=== PATIENT | female | born 1970 | race Caucasian/White ===

== ENCOUNTER 2016-12-06 19:29 | Inpatient (IN) | payer OTHER ==
--- NOTE | ~2016-12-06 | DS ---
Discharge Summary [facility] [address] [place]. [address] NAME: NADIA HART : 66 STATUS : DIS IN PAT#: [id number] AGE: 46 ADM/REG DATE : 12/06/16 MR#: [id number] REPORT SERV DATE: 12/10/16 DICTATED BY: DATE: REPORT STATUS : Draft TRANSCRIBED BY: MODL DATE: 12/09/16 ADMISSION DATE: 12/06/2016 DISCHARGE DATE: 12/09/2016 [facility] CONSULTANTS: None. DISCHARGE DIAGNOSES: 1. Recurrent abdominal wall cellulitis - precipitated by abrasion from new mattress and box springs. 2. Bilateral lower extremity lymphedema and pannus lymphedema - chronic. 3. Morbid obesity. 4. Hypokalemia - for scheduled potassium replacement at discharge. 5. Hypomagnesemia - for scheduled magnesium replacement at discharge. 6. Bradycardia - due to outpatient carvedilol dosing. Dose decreased for discharge. 7. Insulin-dependent diabetes mellitus type 2 - uncontrolled with outpatient hemoglobin A1c of 7.7. Blood glucose values here never more than 100, on significantly less insulin. Outpatient dietary noncompliance for additional education. 8. History of a tick bite - Lyme serologies negative. Discharged on empiric doxycycline. 9. Hypothyroidism - with abnormal thyroid function tests for outpatient repeat thyroid function tests in six weeks. 10.Stable pancytopenia - suspect chronic. For outpatient followup. IMAGING: Included a PA and lateral chest x-ray on 12/08/2016 for fever showing normal chest x-ray. PERTINENT LABS: Blood cultures x2, no growth. Procalcitonin negative. Creatinine between 0.6 and 0.87. Liver enzymes normal. TSH 4.7 with free T4 of 1.59. Immunoglobulin G and M levels normal. Hemoglobin A1c 7.7, lactate 1.1. White blood cell count 3.4 to 5.3. Hemoglobin 11 to 12, platelets 86 to 123. Lyme screening test negative. [place] spotted fever IgG and IgM pending at the time of discharge. HISTORY OF PRESENT ILLNESS: For full details, please see the previously dictated history of present illness by Dr. Mauricio Velasquez. This is a 46-year-old white female with morbid obesity and insulin-dependent diabetes mellitus type 2 with a history of recurrent abdominal wall cellulitis. The patient's symptoms began three days prior to admission when her pannus became abraded on a new mattress. She was seen in clinic by her primary care physician, given a dose of intramuscular Rocephin and a prescription for oral clindamycin. She took only one tablet and felt as if her cellulitic area was increasing, with some associated low- grade fevers, and she presented to the emergency department for further evaluation. The patient also provided history there of a tick bite one to two weeks ago and a prior history of [place] spotted fever. She had been prescribed doxycycline by her primary care provider, but had not been taking that medication. She did have some associated thrombocytopenia on admission of unclear chronicity. Discharge Summary [address] [address] NAME: NADIA HART : 66 STATUS : DIS IN PAT#: [id number] AGE: 46 ADM/REG DATE : 12/06/16 MR#: [id number] REPORT SERV DATE: 12/10/16 DICTATED BY: DATE: REPORT STATUS : Draft TRANSCRIBED BY: CHELLE DATE: 12/09/16 HOSPITAL COURSE: The patient was admitted to [address] [place] [address]. For the abdominal wall cellulitis, she was placed on IV Rocephin and vancomycin. She began responding to this almost immediately with regression of the erythema and induration. The patient had no ongoing warmth or tenderness of the pannus during admission. She did have prominent peau d'orange findings, and chronic lymphedema both of the lower extremities and the pannus seem to be playing a role in her recurrent infections. She was placed on IV diuretics for brief period with excellent urine output, and stability of her creatinine. The patient had some electrolyte abnormalities notably hypomagnesemia and hypokalemia even prior to initiation of diuretics. She was placed on scheduled and p.r.n. replacement for this. She also was noted to be bradycardic during portions of the admission with heart rate in the mid 40 to mid 50 range. She takes 12.5 mg of carvedilol previously and this was decreased to 6.25 mg p.o. twice a day with resultant improvement in her heart rate to the mid 60s to mid 70 range. The patient was continued on her empiric doxycycline throughout the hospitalization. Lyme serologies were obtained and were negative. [place] spotted fever serologies are still pending at the time of discharge, and she will complete a 10-day total course of doxycycline when she is at home. The patient was continued on her home dose of levothyroxine but had mild abnormalities noted on thyroid function testing. This will need to be followed up as an outpatient. The patient had many questions prior to discharge regarding self hygiene and care of her pannus. It was recommended that she use Hibiclens body washes for the next 14 days to eradicate any remaining superficial bacteria that may exist in her pannus or groin skin folds and across the pannus. DISCHARGE DISPOSITION: The patient is being discharged to home in the care of supportive family with no specific activity restrictions. Regarding diet, she should adhere to an 1800 K calorie ADA diet. Of note, when she adhered to a diet here, she required very, very minimal insulin, perhaps 10-20 units of basal insulin at night, compared to her 65 units a day at home. She would benefit from further outpatient diabetes education, but does not have any other home health or home physical therapy needs at present. She needs to follow up with her primary care provider in 7-14 days [address] Dr. Patel Miller. DISCHARGE MEDICATIONS: Include: 1. Amlodipine 10 mg p.o. at bedtime. 2. Aspirin 81 mg p.o. q.a.m. 3. Clindamycin 300 mg p.o. every eight hours for 10 days. 4. Doxycycline 100 mg p.o. b.i.d. for 10 days. 5. Carvedilol 6.25 mg p.o. twice a day. 6. Lasix 40 mg p.o. q.a.m. Discharge Summary [address] [address] NAME: NADIA HART : 66 STATUS : DIS IN PAT#: [id number] AGE: 46 ADM/REG DATE : 12/06/16 MR#: [id number] REPORT SERV DATE: 12/10/16 DICTATED BY: DATE: REPORT STATUS : Draft TRANSCRIBED BY: CHELLE DATE: 12/09/16 7. Levothyroxine 175 mcg p.o. q.a.m. 8. Multivitamin one tablet p.o. at bedtime. 9. Prilosec 20 mg p.o. daily. 10.Pravastatin 40 mg p.o. at bedtime. 11.Magnesium oxide 400 mg p.o. twice a day. 12.Potassium chloride 40 mEq p.o. twice a day. 13.Desyrel 25 mg p.o. at bedtime. 14.Flovent HFA two puffs inhaled twice a day as needed for shortness of breath. 15.Glipizide extended release 20 mg p.o. q.a.m. 16.Metformin 1000 mg p.o. twice a day. 17.Neurontin 300 mg p.o. twice a day as needed. 18.Albuterol MDI two puffs inhaled every four hours as needed for shortness of breath. 19.Victoza 1.2 mg subcu at bedtime. 20.Benadryl 25 mg p.o. daily as needed. 21.Lantus 50 units subcu at bedtime. 22.Chlorhexidine body wash 4% - washing skin folds and on pannus daily for 14 days. Thirty five minutes was spent in completion of the discharge. DICTATED BY: Cristy Wade/CHELLE Ok Ariza M.D. / [id number] CC: Cristy Wade M.D.
--- NOTE | ~2016-12-06 | HP ---
History And Physical [place] [address] [place]. [address] NAME: NADIA REDMOND : 66 STATUS : ADM IN [facility]#: [id number] AGE: 46 ADM/REG DATE : 12/06/16 MR#: [id number] REPORT SERV DATE: 12/07/16 DICTATED BY: DEONDRE SMITH DATE: 12/06/16 REPORT STATUS : Draft TRANSCRIBED BY: MODTyson DATE: 12/06/16 DATE OF ADMISSION: 12/06/2016 POINT OF ENTRY: [facility] Emergency Department. CHIEF COMPLAINT: Abdominal wall cellulitis. HISTORY OF PRESENT ILLNESS: Ms. Redmond is a 46-year-old female with a history of insulin- dependent diabetes mellitus, type 2, hypertension, hypothyroidism, and morbid obesity, who presents to emergency department with a three-day history of progressive worsening cellulitis involving her anterior abdominal wall. The patient states that her symptoms began about three days ago. It has been associated with some low-grade fevers of approximately 100.7 degrees Fahrenheit on Tuesday. She was seen in clinic by her primary care physician and was given a dose of intramuscular Rocephin as well as a prescription for oral clindamycin. The patient felt as if her cellulitic area was improving while in Dr. Miller's office. However, upon returning home, it is started to spread prompting her presentation to the emergency department. The patient also states that she had a tick bite about one or two weeks ago given her prior history of [place] spotted fever. She was given a prescription empirically for some doxycycline; however, the patient states that she did not fill this prescription until today, and her first dose of doxycycline was today. She denies any target lesions, any arthritic symptoms, or any joint effusions. Initial evaluation in the emergency department is notable for stable vital signs except for some high blood pressure. Labs are unremarkable except for some mild thrombocytopenia, for which no baseline is available for comparison. Lactic acid within normal limits. The patient was given a dose of IV vancomycin and admitted to the Hospitalist Service. COMPREHENSIVE REVIEW OF SYSTEM: Otherwise negative unless listed in history of present illness. PAST MEDICAL HISTORY: 1. Hypertension. 2. Insulin-dependent diabetes mellitus, type 2. 3. Hypothyroidism. 4. Morbid obesity. 5. History of [place] spotted fever. SURGICAL HISTORY: 1. Carpal tunnel. 2. Parker tooth extraction. ALLERGIES: PENICILLIN, DEMEROL, AND ACCUPRIL. History And Physical [address] [address] NAME: NADIA REDMOND : 66 STATUS : ADM IN PAT#: [id number] AGE: 46 ADM/REG DATE : 12/06/16 MR#: [id number] REPORT SERV DATE: 12/07/16 DICTATED BY: DEONDRE SMITH DATE: 12/06/16 REPORT STATUS : Draft TRANSCRIBED BY: CHELLE DATE: 12/06/16 HOME MEDICATIONS: 1. Albuterol two puff inhalation q.4 hours. 2. Norvasc 10 mg at bedtime. 3. Aspirin 81 mg daily. 4. Carvedilol 12.5 mg b.i.d. 5. Clindamycin 300 mg q.8 hours. 6. Benadryl 25 mg daily. 7. Doxycycline 100 mg b.i.d. 8. Flovent two puffs inhalation b.i.d. 9. Lasix 40 mg daily. 10.Gabapentin 300 mg b.i.d. 11.Glipizide ER 20 mg daily. 12.Lantus 65 units q.h.s. 13.Levothyroxine 175 mcg daily. 14.Victoza 1.2 mg at bedtime. 15.Metformin 1000 mg b.i.d. 16.Multivitamin one tab daily. 17.Prilosec 20 mg daily. 18.Pravastatin 40 mg at bedtime. SOCIAL HISTORY: Denies any tobacco, alcohol, illicits. She is on disability. FAMILY HISTORY: Mother with diabetes and hypertension. Father with diabetes and hypertension. Siblings with diabetes and early onset coronary artery disease. LABS AND IMAGIN. White count 5.3, hemoglobin 12.2, hematocrit 36.9, platelet is 99. 2. Sodium is 137, potassium 2.9, chloride 101, carbon dioxide 30, BUN 9, creatinine 0.87, glucose is 200, calcium is 8.7. 3. EKG per my review shows normal sinus rhythm. No evidence of any acute ischemic infarction. 4. Lactic acid is 1.1. PHYSICAL EXAMINATION: VITAL SIGNS: Temperature is 98.5 degrees Fahrenheit, pulse is 71, respirations 16, saturating 94% on room air, blood pressure 183/77. On recheck, blood pressure is now 137/62. GENERAL: The patient is awake, alert, in no acute distress. Resting comfortably. She is a morbidly obese appearing female, nontoxic. HEENT: Atraumatic and normocephalic. Moist mucous membranes. Pupils are equal, round, reactive to light and accommodation. Extraocular eye movements are intact. No scleral icterus. NECK: No jugular venous distention. No carotid bruits. CARDIAC: Regular rate and rhythm. No murmurs, rubs, or gallops. Normal S1, S2. LUNGS: Clear to auscultation bilaterally. No wheezes, rhonchi, or rales. ABDOMEN: The patient is obese with a very large pannus. The cellulitic region of erythema, warmth and tenderness on palpation involves the anterior abdominal wall extending into the History And Physical [address] [address] NAME: NADIA REDMOND : 66 STATUS : ADM IN [facility]#: [id number] AGE: 46 ADM/REG DATE : 12/06/16 MR#: [id number] REPORT SERV DATE: 12/07/16 DICTATED BY: DEONDRE SMITH DATE: 12/06/16 REPORT STATUS : Draft TRANSCRIBED BY: CHELLE DATE: 12/06/16 pannus and within the pannicular folds. In the cellulitic region, there are no palpable fluid collections or obvious purulent drainage, and it does not extend into the inguinal region, mons pubis, or perineal region. EXTREMITIES: Warm and perfused. No cyanosis, clubbing, or edema. SKIN: Warm and dry except for noted above. PSYCH: Affect appropriate. NEURO: Alert and oriented x3. Cranial nerves 2 through 12 grossly intact. Speech is normal. Gait not assessed. ASSESSMENT: Ms. Redmond is a 46-year-old female who presents with a three-day history of worsening cellulitic changes involving her anterior abdominal wall. PROBLEM LIST: 1. Anterior abdominal wall cellulitis. 2. Recent tick bite. 3. Hypokalemia. 4. Thrombocytopenia. 5. Hypertension. 6. Insulin-dependent diabetes mellitus, type 2. 7. Morbid obesity. PLAN: 1. Anterior abdominal wall cellulitis. We will treat empirically at this time with IV vancomycin and Rocephin for broad gram-positive as well as gram-negative coverage. We will narrow as appropriate. Follow up blood cultures. 2. Tick bite. The patient reports a recent tick bite. She also reports recent history of [place] spotted fever and recent fevers. I suspect her fevers are due to her cellulitis, but given her history, we will empirically place the patient on some oral doxycycline and check [place] spotted fever as well as Lyme serologies. 3. Insulin-dependent diabetes mellitus, type 2 with hyperglycemia. Keep the patient's home long-acting insulin. Hold oral hypoglycemics level 2 insulin sliding scale. Check hemoglobin A1c. 4. Thrombocytopenia, unclear baseline for comparison. This may be new accounts representative of an acute tick-borne illness given her history. We will again treat empirically for [place] spotted fever and observe for platelet levels. 5. Hypertension. Continue the patient's home medications. IV hydralazine p.r.n. for elevated blood pressure. 6. Hypokalemia. She has received 40 of potassium chloride here in the emergency department. We will place the patient on electrolyte replacement protocol. 7. DVT prophylaxis. Lovenox subcu. 8. Code status. The patient wished to be full code. PAUL/CHELLE Deondre Zimmerman History And Physical [address] [address] NAME: NADIA REDMOND : 66 STATUS : ADM IN [facility]#: [id number] AGE: 46 ADM/REG DATE : 12/06/16 MR#: [id number] REPORT SERV DATE: 12/07/16 DICTATED BY: DEONDRE SMITH DATE: 12/06/16 REPORT STATUS : Draft TRANSCRIBED BY: MODL DATE: 12/06/16 MD Ron / [id number] CC: MD Patel Cervantes M.D.
[2016-12-06 19:41] LABS: BASOPHILS 0.2 %; BASOPHILS ABSOLUTE 0.01 10/3/uL (0.0-0.16); EOSINOPHILS 1.1 %; EOSINOPHILS ABSOLUTE 0.06 10/3/uL (0.0-0.53); ER CBC TAT 0 Hrs 07 Mins; HEMATOCRIT 36.9 % (36.0-48.0); HEMOGLOBIN 12.2 g/dL (12.0-16.0); IMMATURE GRANULOCYTES 0.2 %; IMMATURE GRANULOCYTES ABSOLUTE 0.01 10/3/uL (0.0-0.11); LYMPHOCYTES 20.2 %; LYMPHOCYTES ABSOLUTE 1.07 10/3/uL (0.67-4.30); MEAN CORPUS HGB CONC 33.1 g/dL (32.0-36.0); MEAN CORPUSCULAR HEMOGLOB 26.5 pg (26.0-34.0); MONOCYTES 7.7 %; MONOCYTES ABSOLUTE 0.41 10/3/uL (0.21-1.20); NEUTROPHILS 70.6 %; NEUTROPHILS ABSOLUTE 3.75 10/3/uL (2.02-8.40); PLATELET COUNT 99 10/3/uL (150-400); RBC DISTRIBUTION WIDTH 15.3 % (12.0-16.0); RED CELL COUNT 4.61 10/6/uL (4.0-5.6); WHITE BLOOD CELLS 5.3 10/3/uL (4.5-10.5)
[2016-12-06 19:44] LABS: MANUAL DIFF NO %
[2016-12-06 19:56] LABS: BUN (BLOOD UREA NITROGEN) 9 MG/DL (6-23); CALCIUM, SERUM 8.7 MG/DL (8.5-10.4); CHLORIDE, SERUM 101 MMOL/L (96-112); CO2 (CARBON DIOXIDE) 30 MMOL/L (24-34); CREATININE 0.87 MG/DL (0.55-1.02); GFR AFRICAN AMERICAN 91 ML/MIN (>=60); GFR NON AFRICAN AMERICAN 79 ML/MIN (>=60)
[2016-12-06 19:57] LABS: GLUCOSE, SERUM 205 MG/DL (60-99); POTASSIUM, SERUM 2.9 MMOL/L (3.5-5.3); SODIUM, SERUM 137 MMOL/L (135-148)
[2016-12-06 20:00] LABS: LACTATE 1.1 MMOL/L (0.3-2.4)
[2016-12-06] MEDS ORDERED: MONODOX100 MG PO (20:10)
[2016-12-06] MEDS ORDERED: CLEOCIN300 MG PO (20:10)
[2016-12-06] MEDS ORDERED: COREG12 PO (20:11)
[2016-12-06] MEDS ORDERED: L40 PO (20:11)
[2016-12-06] MEDS ORDERED: FLOVENT44 INH (20:11)
[2016-12-06] MEDS ORDERED: GLUCXL10 PO (20:12)
[2016-12-06] MEDS ORDERED: LANTUS SC (20:12)
[2016-12-06] MEDS ORDERED: GLUCOPHAGE1000 MG PO (20:13)
[2016-12-06] MEDS ORDERED: SYNTHROID175 MCG PO (20:13)
[2016-12-06] MEDS ORDERED: NEUR300 PO (20:13)
[2016-12-06] MEDS ORDERED: VICTOZA18 MG/3 ML SC (20:14)
[2016-12-06] MEDS ORDERED: PRILO PO (20:14)
[2016-12-06] MEDS ORDERED: PRAVACHOL40 MG PO (20:14)
[2016-12-06] MEDS ORDERED: PROAIR HFA INH (20:14)
[2016-12-06] MEDS ORDERED: NORV10 PO (20:14)
[2016-12-06] MEDS ORDERED: ASAB PO (20:15)
[2016-12-06] MEDS ORDERED: ROCEPH IM (20:16)
[2016-12-06] MEDS ORDERED: BEN25 PO (20:17)
[2016-12-06] MEDS ORDERED: MULTIVIT/MIN PO (20:19)
[2016-12-06 20:36] LABS: PROCALCITONIN 0.18 ng/mL (<0.5)
[2016-12-06 22:28] LABS: ALBUMIN 3.5 G/DL (3.5-5.0); ALKALINE PHOSPHATASE 108 U/L (45-117); DIRECT BILIRUBIN 0.4 MG/DL (0.0-0.4); INDIRECT BILIRUBIN(NOT ORDER) 0.5 MG/DL (0.1-0.9); SGOT(AST) 20 U/L (5-40); SGPT(ALT) 26 U/L (5-65); TOTAL BILIRUBIN 0.9 MG/DL (0-1.2); TOTAL PROTEIN 7.1 G/DL (6.0-8.5)
[2016-12-07 06:24] LABS: BUN (BLOOD UREA NITROGEN) 7 MG/DL (6-23); CALCIUM, SERUM 8.2 MG/DL (8.5-10.4); CHLORIDE, SERUM 104 MMOL/L (96-112); CO2 (CARBON DIOXIDE) 28 MMOL/L (24-34); CREATININE 0.75 MG/DL (0.55-1.02); FREE T4 1.59 NG/DL (0.76-1.46); GFR AFRICAN AMERICAN 109 ML/MIN (>=60); GFR NON AFRICAN AMERICAN 94 ML/MIN (>=60); GLUCOSE, SERUM 108 MG/DL (60-99); IMMUNOGLOBULIN G 717 MG/DL (673-1464); IMMUNOGLOBULIN M 107 MG/DL (30-270); POTASSIUM, SERUM 2.8 MMOL/L (3.5-5.3); SODIUM, SERUM 140 MMOL/L (135-148)
[2016-12-07 07:48] LABS: BASOPHILS 0.2 %; BASOPHILS ABSOLUTE 0.01 10/3/uL (0.0-0.16); EOSINOPHILS 2.5 %; EOSINOPHILS ABSOLUTE 0.12 10/3/uL (0.0-0.53); HEMATOCRIT 34.2 % (36.0-48.0); HEMOGLOBIN 10.9 g/dL (12.0-16.0); IMMATURE GRANULOCYTES 0.4 %; IMMATURE GRANULOCYTES ABSOLUTE 0.02 10/3/uL (0.0-0.11); LYMPHOCYTES 24.9 %; LYMPHOCYTES ABSOLUTE 1.21 10/3/uL (0.67-4.30); MANUAL DIFF NO %; MEAN CORPUS HGB CONC 31.9 g/dL (32.0-36.0); MEAN CORPUSCULAR HEMOGLOB 25.8 pg (26.0-34.0); MEAN CORPUSCULAR VOLUME 80.9 fL (80-100); MEAN PLATELET VOLUME 11.7 fL (9.2-13.0); MONOCYTES 10.1 %; MONOCYTES ABSOLUTE 0.49 10/3/uL (0.21-1.20); NEUTROPHILS 61.9 %; PLATELET COUNT 86 10/3/uL (150-400); RBC DISTRIBUTION WIDTH 15.5 % (12.0-16.0); RED CELL COUNT 4.23 10/6/uL (4.0-5.6); WHITE BLOOD CELLS 4.9 10/3/uL (4.5-10.5)
[2016-12-08 08:22] LABS: BASOPHILS 0.4 %; BASOPHILS ABSOLUTE 0.02 10/3/uL (0.0-0.16); EOSINOPHILS 2.9 %; EOSINOPHILS ABSOLUTE 0.13 10/3/uL (0.0-0.53); HEMATOCRIT 36.9 % (36.0-48.0); IMMATURE GRANULOCYTES 0.2 %; IMMATURE GRANULOCYTES ABSOLUTE 0.01 10/3/uL (0.0-0.11); LYMPHOCYTES 27.2 %; LYMPHOCYTES ABSOLUTE 1.21 10/3/uL (0.67-4.30); MEAN CORPUS HGB CONC 32.5 g/dL (32.0-36.0); MEAN PLATELET VOLUME 10.7 fL (9.2-13.0); MONOCYTES 7.6 %; MONOCYTES ABSOLUTE 0.34 10/3/uL (0.21-1.20); NEUTROPHILS 61.7 %; NEUTROPHILS ABSOLUTE 2.74 10/3/uL (2.02-8.40); RBC DISTRIBUTION WIDTH 15.5 % (12.0-16.0); RED CELL COUNT 4.61 10/6/uL (4.0-5.6); WHITE BLOOD CELLS 4.5 10/3/uL (4.5-10.5)
[2016-12-08 08:25] LABS: MANUAL DIFF NO %; PLATELET COUNT 113 10/3/uL (150-400)
[2016-12-08 08:42] LABS: BUN (BLOOD UREA NITROGEN) 5 MG/DL (6-23); CALCIUM, SERUM 8.5 MG/DL (8.5-10.4); CHLORIDE, SERUM 109 MMOL/L (96-112); CO2 (CARBON DIOXIDE) 26 MMOL/L (24-34); CREATININE 0.55 MG/DL (0.55-1.02); GFR AFRICAN AMERICAN 129 ML/MIN (>=60); GFR NON AFRICAN AMERICAN 111 ML/MIN (>=60); SODIUM, SERUM 141 MMOL/L (135-148)
[2016-12-08 08:43] LABS: GLUCOSE, SERUM 82 MG/DL (60-99); POTASSIUM, SERUM 3.6 MMOL/L (3.5-5.3)
[2016-12-08 21:21] LABS: LYME AB SCREEN RESULT Negative (NEG)
[2016-12-09 05:44] LABS: BASOPHILS 0.3 %; BASOPHILS ABSOLUTE 0.01 10/3/uL (0.0-0.16); EOSINOPHILS 2.9 %; HEMATOCRIT 33.9 % (36.0-48.0); IMMATURE GRANULOCYTES 0.3 %; IMMATURE GRANULOCYTES ABSOLUTE 0.01 10/3/uL (0.0-0.11); LYMPHOCYTES 34.2 %; LYMPHOCYTES ABSOLUTE 1.17 10/3/uL (0.67-4.30); MEAN CORPUS HGB CONC 32.4 g/dL (32.0-36.0); MEAN CORPUSCULAR HEMOGLOB 26.4 pg (26.0-34.0); MEAN CORPUSCULAR VOLUME 81.5 fL (80-100); MEAN PLATELET VOLUME 11.4 fL (9.2-13.0); MONOCYTES 8.2 %; MONOCYTES ABSOLUTE 0.28 10/3/uL (0.21-1.20); NEUTROPHILS 54.1 %; NEUTROPHILS ABSOLUTE 1.85 10/3/uL (2.02-8.40); PLATELET COUNT 123 10/3/uL (150-400); RBC DISTRIBUTION WIDTH 15.4 % (12.0-16.0); RED CELL COUNT 4.16 10/6/uL (4.0-5.6); WHITE BLOOD CELLS 3.4 10/3/uL (4.5-10.5)
[2016-12-09 05:52] LABS: BUN (BLOOD UREA NITROGEN) 6 MG/DL (6-23); CALCIUM, SERUM 8.6 MG/DL (8.5-10.4); CHLORIDE, SERUM 107 MMOL/L (96-112); CO2 (CARBON DIOXIDE) 25 MMOL/L (24-34); GFR AFRICAN AMERICAN 125 ML/MIN (>=60); GFR NON AFRICAN AMERICAN 108 ML/MIN (>=60); GLUCOSE, SERUM 86 MG/DL (60-99); POTASSIUM, SERUM 3.6 MMOL/L (3.5-5.3); SODIUM, SERUM 141 MMOL/L (135-148)
[2016-12-09 05:56] LABS: MANUAL DIFF NO %
[2016-12-09] MEDS ORDERED: TRAZ50 PO (11:17)
[2016-12-09] MEDS ORDERED: MAGOX4 PO (11:17)
[2016-12-09] MEDS ORDERED: COREG6 PO (11:18)
[2016-12-09] MEDS ORDERED: KLOR-CON M2020 MEQ PO (11:18)
[2016-12-09 14:56] LABS: ROCKY MTN SPOTTED FEVER AB IGG <1:64 (LTD64); ROCKY MTN SPOTTED FEVER AB IGM <1:64 (LTD64)
== END 2016-12-09 13:51 | disposition home or self-care (01) | DRG 603 ==
LOC: ER 19:29 → 4SO 21:56
PROVIDERS: Emergency Medicine; Hospitalist; Internal Medicine
DX: L03.311 Cellulitis of abdominal wall (principal); D61.818 Other pancytopenia; Z68.43 Body mass index [BMI] 50.0-59.9, adult; E11.65 Type 2 diabetes mellitus with hyperglycemia; E66.01 Morbid (severe) obesity due to excess calories; I10 Essential (primary) hypertension; E03.9 Hypothyroidism, unspecified; E87.6 Hypokalemia; E83.42 Hypomagnesemia
CPT/HCPCS: 71020; 80048; 80076; 80202; 82784; 82962; 83036; 83520; 83605; 83735; 84145; 84439; 84443; 85025; 86618; 86757; 86757-59; 87040; 93005; 94640; 96365; 96367; 99284; A9270-GY; J3370; J3475